=== PATIENT | male | born 1960 | race African-American/Black ===

== ENCOUNTER 2018-07-05 10:39 | Emergency (ER) | payer BC, MEDICARE ==
[2018-07-05 11:32] LABS: #Basophils 0.1 thou/uL (0.0-0.2); #Eosinphils 0.1 thou/uL (0.0-0.7); #Lymphocytes 1.6 thou/uL (1.20-3.40); #Monocytes 0.7 thou/uL (0.11-0.59); #Neutrophils 2.1 thou/uL (1.40-6.50); %Basophils 1.5 % (0.0-1.0); %Lymphocytes 34.4 % (21.0-51.0); %Monocytes 14.6 % (0.0-10.0); %Neutrophils 46.5 % (42.0-75.0); Hemoglobin 15.1 g/dL (14.0-18.0); Mean Corpuscular HGB CONC 33.2 g/dL (32.0-36.0); Mean Corpuscular Hemoglobin 30.3 pg (27.0-31.0); Mean Corpuscular Volume 91.3 fL (78.0-98.0); Mean Platelet Volume 9.1 fL (7.4-10.4); Platelet Count 140 thou/uL (130-400); Red Blood Cell (RBC) Count 4.98 mill/uL (4.70-6.10); White Blood Cell (WBC) Count 4.6 thou/uL (4.8-10.8)
[2018-07-05 11:57] LABS: ALT (SGPT) 77 U/L (8-55); AST (SGOT) 95 U/L (5-34); Albumin 2.8 g/dL (3.5-5.0); Alkaline Phosphatase 147 U/L (40-150); Anion Gap 11 mmol/L (10-20); BUN (Urea Nitrogen) 12 mg/dL (8.4-25.7); Bilirubin, Total 1.9 mg/dL (0.2-1.2); Calc. Creatinine Clearance 0 mL/min (70-130); Calcium 9.1 mg/dL (7.8-10.44); Carbon Dioxide 25 mmol/L (22-29); Chloride 101 mmol/L (98-107); Estimated GFR-MDRD 86; Globulin 5.3 g/dL (2.4-3.5); Glucose 419 mg/dL (70-105); Potassium 4.2 mmol/L (3.5-5.1); Protein, Total 8.1 g/dL (6.0-8.3); Sodium 133 mmol/L (136-145)
--- NOTE | 2018-07-05 13:22 | RAD ---
CHEST 2 VIEWS: HISTORY: Rash. Chest pain. FINDINGS: Cardiac silhouette and pulmonary vasculature are unremarkable. Mediastinum is midline. NO confluent airspace consolidation, pneumothorax, or pleural fluid evident. Posterior costophrenic angles are e xcluded from the lateral view. IMPRESSION: No active cardiopulmonary abnormalities are demonstrated. POS: [facility]
== END 2018-07-05 14:17 | disposition home or self-care (01) ==
LOC: ERS 10:39
DX: I73.9 Peripheral vascular disease, unspecified (principal); I89.0 Lymphedema, not elsewhere classified; B19.20 Unspecified viral hepatitis C without hepatic coma; E11.65 Type 2 diabetes mellitus with hyperglycemia; Z87.891 Personal history of nicotine dependence
CPT/HCPCS: 36415; 71046; 80053; 83880; 84484; 85025; 93005

== ENCOUNTER 2025-02-24 21:46 | Emergency (ER) | payer MEDICARE, SELFPAY ==
[2025-02-25 00:36] LABS: #Basophils 0.04 10x3/uL (0.0-0.2); #Eosinophils 0.26 10x3/uL (0.0-0.7); #Monocytes 0.88 10x3/uL (0.11-0.59); #Neutrophils 4.32 10x3/uL (1.40-6.50); %Basophils 0.5 % (0.0-1.0); %Eosinophils 3.1 % (0.0-10.0); %Lymphocytes 33.2 % (21.0-51.0); %Monocytes 10.7 % (0.0-10.0); %Neutrophils 52.3 % (42.0-75.0); Hematocrit 32.0 % (42.0-52.0); Hemoglobin 10.1 g/dL (14.0-18.0); Mean Corpuscular Hemoglobin 26.6 pg (27.0-31.0); Mean Corpuscular Volume 84.2 fL (78.0-98.0); Platelet Count 179 10x3/uL (130-400); Red Blood Cell (RBC) Count 3.80 mill/uL (4.70-6.10); White Blood Cell (WBC) Count 8.26 10x3/uL (4.8-10.8)
[2025-02-25 01:00] LABS: ALT (SGPT) 17 U/L (Less than 45); AST (SGOT) 32 U/L (11-34); Albumin 2.8 g/dL (3.1-4.5); Alkaline Phosphatase 86 U/L (40-110); Anion Gap 12 mmol/L (10-20); BUN (Urea Nitrogen) 21 mg/dL (8.4-25.7); Bilirubin, Total 0.3 mg/dL (0.3-1.2); Calc. Creatinine Clearance 0 mL/min (70-130); Calcium 8.7 mg/dL (7.8-10.44); Carbon Dioxide 22 mmol/L (23-31); Chloride 108 mmol/L (98-107); Globulin 5.2 g/dL (2.4-3.5); Glucose 113 mg/dL (80-115); Lipase 29 U/L (8-78); Magnesium 2.0 mg/dL (1.6-2.6); Potassium 4.4 mmol/L (3.5-5.1); Sodium 138 mmol/L (136-145)
[2025-02-25] MEDS ORDERED: Sulfameth/Trimethoprim DS 800-160mg TAB ONE (04:19)
[2025-02-25] MEDS ORDERED: Iopamidol-370 76% 500 ML MDV (1 ML CHARGE) ONE (12:22)
== END 2025-02-25 04:53 | disposition home or self-care (01) ==
LOC: ERS 21:46
DX: L03.116 Cellulitis of left lower limb (principal); L03.115 Cellulitis of right lower limb; I87.8 Other specified disorders of veins; I82.509 Chronic embolism and thrombosis of unspecified deep veins of unspecified lower extremity; I96 Gangrene, not elsewhere classified; Z87.891 Personal history of nicotine dependence
CPT/HCPCS: 73701 ×2; 80053; 83605; 83690; 83735; 83880; 84484; 85025; 93005; 96374; 99284; J2270; Q9967